=== PATIENT | male | born 1970 | race Caucasian/White ===

== ENCOUNTER → 2021-05-29 | Outpatient (CLI) | payer OTHER ==
[~2021-05-29] MED LIST: CRESTOR20 MG PO; DEXILANT30 MG PO; ELIQUIS5 MG PO; FENTANYL1 EAC1 TD; OXYCODONE HCL30 MG PO; PEPCID AC20 MG PO; REGLAN10 MG PO; ULTRAM50 MG PO; VITAMIN D3125 MCG PO; XYZAL5 MG PO
== END ==
LOC: OPSV 15:03
DX: R77.0 Abnormality of albumin (principal); R93.2 Abnormal findings on diagnostic imaging of liver and biliary tract; C80.1 Malignant (primary) neoplasm, unspecified; G89.3 Neoplasm related pain (acute) (chronic)
CPT/HCPCS: 96365; P9047

== ENCOUNTER → 2021-05-31 | Day surgery (SDC) | payer OTHER | END | disposition home or self-care (01) | LOC: OR 05:08 | DX: K31.1 Adult hypertrophic pyloric stenosis (principal); C25.9 Malignant neoplasm of pancreas, unspecified; C78.7 Secondary malignant neoplasm of liver and intrahepatic bile duct; U07.1 COVID-19; I10 Essential (primary) hypertension; E78.00 Pure hypercholesterolemia, unspecified; F17.210 Nicotine dependence, cigarettes, uncomplicated; Z79.01 Long term (current) use of anticoagulants; Z79.899 Other long term (current) drug therapy | CPT/HCPCS: 74018; J1642; J2704; J7030 ==

== ENCOUNTER → 2021-06-02 | Outpatient (CLI) | payer OTHER ==
[~2021-06-02] VITALS: Ht 182.9 cm; Wt 102.1 kg
== END ==
LOC: EROP 13:06
DX: U07.1 COVID-19 (principal); Z23 Encounter for immunization; D84.9 Immunodeficiency, unspecified
CPT/HCPCS: M0247; Q0247